=== PATIENT | female | born 1975 | race African-American/Black ===

== ENCOUNTER → 2022-02-27 12:36 | Outpatient (BNVA) | payer OTHER, SELFPAY | PROVIDERS: Visit Provider Physician Assistant Medical | DX: S06.9X0A Unspecified intracranial injury without loss of consciousness, initial encounter (principal); S16.1XXA Strain of muscle, fascia and tendon at neck level, initial encounter; S39.012A Strain of muscle, fascia and tendon of lower back, initial encounter; V43.02XA Car driver injured in collision with other type car in nontraffic accident, initial encounter | CPT/HCPCS: 99202 ==

== ENCOUNTER → 2022-03-01 08:55 | Outpatient (BNVA) | payer OTHER, SELFPAY | PROVIDERS: Visit Provider Physician Assistant | DX: S06.9X0A Unspecified intracranial injury without loss of consciousness, initial encounter (principal); S16.1XXA Strain of muscle, fascia and tendon at neck level, initial encounter; S39.012A Strain of muscle, fascia and tendon of lower back, initial encounter; V43.02XA Car driver injured in collision with other type car in nontraffic accident, initial encounter | CPT/HCPCS: 99213 ==